=== PATIENT | female | born 1950 | race Caucasian/White ===

== ENCOUNTER → 2020-02-29 13:29 | Outpatient (BNVA) | payer MEDICARE, OTHER, SELFPAY | PROVIDERS: Family Provider Family Medicine; Visit Provider Nurse Practitioner Family | DX: Z11.59 Encounter for screening for other viral diseases (principal) | CPT/HCPCS: 87635 ==

== ENCOUNTER → 2020-03-28 17:20 | Outpatient (BNVA) | payer MEDICARE, OTHER, SELFPAY | PROVIDERS: Family Provider Family Medicine; Visit Provider Family Medicine | DX: Z00.00 Encounter for general adult medical examination without abnormal findings (principal); Z12.11 Encounter for screening for malignant neoplasm of colon; H40.89 Other specified glaucoma; G50.0 Trigeminal neuralgia; R03.0 Elevated blood-pressure reading, without diagnosis of hypertension; Z13.220 Encounter for screening for lipoid disorders; Z13.6 Encounter for screening for cardiovascular disorders | CPT/HCPCS: 80061 ==

== ENCOUNTER → 2020-03-29 09:29 | Outpatient (BNVA) | payer MEDICARE, OTHER, SELFPAY | PROVIDERS: Family Provider Family Medicine; Visit Provider Family Medicine | DX: Z00.00 Encounter for general adult medical examination without abnormal findings (principal); Z12.11 Encounter for screening for malignant neoplasm of colon; H40.89 Other specified glaucoma; G50.0 Trigeminal neuralgia; R03.0 Elevated blood-pressure reading, without diagnosis of hypertension; Z13.220 Encounter for screening for lipoid disorders; Z13.6 Encounter for screening for cardiovascular disorders | CPT/HCPCS: 80053; 84443; 85025 ==

== ENCOUNTER 2020-03-31 10:54 | Outpatient (CLI) | payer MEDICARE, OTHER, SELFPAY ==
--- NOTE | 2020-03-31 11:05 | MM_ITS ---
WS: [id number] BILATERAL DIGITAL SCREENING MAMMOGRAPHY WITH CAD CLINICAL INFORMATION: SCREENING HISTORY: Screening mammogram. No current complaints. COMPARISON: TECHNIQUE: Bilateral CC and MLO views. FINDINGS: Scattered fibroglandular densities bilaterally. No suspicious focal mass, asymmetry, calcifications, or architectural distortion. No evidence of malignancy. MM/[place] [id number] IMPRESSION: BI-RADS: 1-Negative FOLLOW UP: 1 Year Follow-up Recommend return to annual screening mammography.
== END 2020-03-31 10:55 | disposition home or self-care (01) ==
LOC: RADSHAW 11:01
PROVIDERS: PCP Family Medicine; Visit Provider Family Medicine
DX: Z12.31 Encounter for screening mammogram for malignant neoplasm of breast (principal)
CPT/HCPCS: 77067

== ENCOUNTER 2020-04-19 08:04 | Day surgery (SDC) | payer MEDICARE, OTHER, SELFPAY ==
[2020-04-13 14:18] VITALS: BMI 34.4
[2020-04-19 08:20] VITALS: BP 149/98; PULSE 86; RESP 18; TEMP 36.4; O2SAT 97
[2020-04-19] MEDS: sodium chloride 0.9% 1,000 ML 30 ML IV (08:24)
--- NOTE | 2020-04-19 08:39 | ANES.PREANE2 ---
Pre-Anesthetic Assessment Pre-Anesthetic Assessment: Height/Weight: Height 1.55 m Weight 82.554 kg Temp Pulse Resp BP Pulse Ox 97.6 F 86 18 149/98 97 04/19/20 08:20 04/19/20 08:20 04/19/20 08:20 04/19/20 08:20 04/19/20 08:20 Preop Diagnosis: Screening Proposed Procedure: Operation Date: 04/19/20 09:00 Proposed Procedures p Colonoscopy 90997 z12.11(Not Applicable) - Andrew Treviño MD Familial anesthetic complications: None Was Beta Judith taken within 24 hours: N/A Last intake: Intake Last Liquid Date 04/18/20 Last Liquid Time 22:00 Last Solid Date 04/17/20 Social: Social History: No alcohol and No tobacco Exam: Pre-Anes Outpt Exam: alert, oriented x 3, clear to auscultation bilaterally and regular rate & rhythm Airway: Cervical ROM: WNL MP: 3 Dentition: False Neuropsych: Comments: trigeminal neuralgia Anesthetic Plan: ASA status: 2 Anesthesia: MAC Risk of > 500 ml blood loss (7ml/kg in children): No Meds/Allergies Current Medications: Current Medications Generic Name Dose Route Start Last Admin Trade Name Freq PRN Reason Stop Dose Admin Sodium Chloride 1,000 mls @ 30 ml s/hr 04/19/20 08:30 04/19/20 08:24 Sodium Chloride 0.9% IV 04/20/20 08:29 30 mls/hr .Q24H CRISTOPHER Administration PFSH Anesthesia PFSH: Medical History (Updated 03/28/20 @ 14:53 by Eleni Garcia MD) Glaucoma Seizures Social History Smoking and tobacco status: never smoked Household members: spouse Marital status: Data Anesthesia Cardiac Studies: No Data to Display
--- NOTE | 2020-04-19 09:48 | W.PM.OPSFHP ---
Same Day Surgery H&P Indication for Procedure/HPI DATE OF PROCEDURE: April 19, 2020 CHIEF COMPLAINT/INDICATIONFOR SURGICAL PROCEDURE: screening colonoscopy PREOP DIAGNOSIS: Screening PLANNED PROCEDRUE: Operation Date: 04/19/20 09:00 Proposed Procedures p Colonoscopy 99662 z12.11(Not Applicable) - Andrew Treviño MD Medications/Allergies* Home Medications Medication Instructions Recorded Confirmed Type brimonidine 0.1 % eye drops 1 drp OPHTHALMIC (EYE) BID ml 03/28/20 04/13/20 History oxcarbazepine 600 mg tablet 600 mg PO BID 03/28/20 04/13/20 History timolol 0.5 % eye drops 1 drp OPHTHALMIC (EYE) BID 03/28/20 04/13/20 History latanoprost 0.005 % eye drops 1 drp OPHTHALMIC (EYE) DAILY 04/05/20 04/13/20 History Allergies/Adverse Reactions Allergy/AdvReac Type Severity Reaction Status Date / Time No Known Allergies Allergy Verified 04/05/20 12:27 Current Medications: Generic Name Dose Route Start Last Admin Trade Name Freq PRN Reason Stop Dose Admin Sodium Chloride 1,000 mls @ 30 mls/hr 04/19/20 08:30 04/19/20 08:24 Sodium Chloride 0.9% IV 04/20/20 08:29 30 mls/hr .Q24H CRISTOPHER Administration Pertinent History/Comorbid Conditions* Medical History (Updated 03/28/20 @ 14:53 by Eleni Garcia MD) Glaucoma Seizures Social History Smoking and tobacco status: never smoked Household members: spouse Marital status: Pertinent Exam Findings alert, oriented x 3 and regular rate & rhythm Recommendations Surgery/Procedure today Coding Level of Care Code Acute Software Configuration Analyst for Jael Abrams
[2020-04-19 10:13] VITALS: BP 107/65; PULSE 80; RESP 16; TEMP 36.3; O2SAT 97
[2020-04-19 10:26] VITALS: BP 122/76; PULSE 77; RESP 16; O2SAT 97
--- NOTE | 2020-04-19 10:34 | ANE.PACU2 ---
Inpatient post-anesthesia follow up: Airway intact: Yes Vital signs: Temperature 97.3 F Pulse Rate 77 Respiratory Rate 16 Blood Pressure 122/76 Pulse Oximetry 97 Oxygen Delivery Me thod Room Air Oxygen Flow Rate Fraction of Inspir ed Oxygen Hydration adequate: Yes Nausea and vomiting: No Pain level: 1 Mental status: Baseline
== END 2020-04-19 10:38 | disposition home or self-care (01) ==
PROVIDERS: PCP Family Medicine; Visit Provider Surgery
PROC: 0DJD8ZZ Inspection of Lower Intestinal Tract, Via Natural or Artificial Opening Endoscopic (ICD-10-PCS; CPT 45378; principal; 2020-04-19 09:00)
DX: Z12.11 Encounter for screening for malignant neoplasm of colon (principal); K57.30 Diverticulosis of large intestine without perforation or abscess without bleeding; K64.8 Other hemorrhoids
CPT/HCPCS: 12345; G0121; J2704; J7030

== ENCOUNTER → 2021-02-02 10:22 | Outpatient (BNVA) | payer MEDICARE, OTHER, SELFPAY | PROVIDERS: PCP Family Medicine; Visit Provider Family Medicine | DX: R35.0 Frequency of micturition (principal) | CPT/HCPCS: 81003; 87086 ==

== ENCOUNTER 2021-03-14 11:14 | Outpatient (CLI) | payer MEDICARE, OTHER, SELFPAY ==
--- NOTE | 2021-03-14 11:17 | MR_ITS ---
WS: [id number] MRI BRAIN WITH HIGH-RESOLUTION IMAGING THROUGH THE INTERNAL AUDITORY CANALS WITHOUT AND WITH CONTRAST HISTORY: MIXED CONDUCTIVE/SENSORINEURAL HEARING LOSS;TINNITUS RT EAR COMPARISON: None available. TECHNIQUE: Multiplanar, multisequence imaging is performed through the brain. Additional 3 mm imaging performed in multiple planes through the internal auditory canal. Postcontrast imaging with 20 ml's of MultiHance. No acute intracranial hemorrhage, midline shift, edema or mass effect. Numerous T2 and FLAIR signal hyperintensities throughout the white matter. No prior large territory i nfarct. Only very small amount of volume loss and atrophy. Ventricles and extra-axial spaces are normal. No inferior displacement of cerebellar tonsils. Clivus and pituitary gland are normal. Internal and external auditory canals: Unremarkable. Cranial nerves VII and VIII complexes: Unremarkable. No enhancement or mass. Cerebellopontine angles: Normal. Paranasal sinuses: Normal. Mastoid air cells: Normal. Calvarium and scalp: Normal. Visualized [place] and dural venous sinuses demonstrate no abnormality. MR/MR iac's wo/w con* [id number] IMPRESSION: 1. No mass or abnormal enhancement the cerebellopontine angles or along the in ternal auditory canals. 2. Moderate scattered T2 and FLAIR signal hyperintensities. These changes can be related to microvascular ischemic disease, migraines, history of smoking or hypertension.
[2021-03-14] MEDS: gadobenate dimeglumine 20 mL vial IV (13:00)
== END 2021-03-14 11:15 | disposition home or self-care (01) ==
LOC: RADSHAW 11:16
PROVIDERS: PCP Family Medicine; Visit Provider Specialist
DX: H90.8 Mixed conductive and sensorineural hearing loss, unspecified (principal); H93.11 Tinnitus, right ear
CPT/HCPCS: 70553; A9577

== ENCOUNTER 2021-03-21 11:14 | Outpatient (CLI) | payer MEDICARE, OTHER, SELFPAY ==
--- NOTE | 2021-03-21 11:30 | MM_ITS ---
WS: [id number] BILATERAL DIGITAL DIAGNOSTIC MAMMOGRAM MAMMOGRAPHY WITH CAD CLINICAL INFORMATION: left breast pain COMPARISON: March 31, 2020 TECHNIQUE: Bilateral CC, MLO, and ML views. FINDINGS: Scattered fibroglandular densities bilaterally. A few punctate calcifications. No significant parench ymal changes since March 31, 2020. Ultrasound left breast is pending. ULTRASOUND BREAST LEFT TECHNIQUE: Ultrasound left breast focused area of concern. CLINICAL INFORMATION: left breast pain FINDINGS: Ultrasound left breast at the 3 to 4:00 position. No cystic or solid lesions. No underlying suspiciou s abnormalities. No lesions to target for biopsy. Findings are benign. MM/[place] [id number] IMPRESSION: BI-RADS: 2-Benign FOLLOW UP: 1 Year Follow-up Recommend return to annual screening mammography.
--- NOTE | 2021-03-21 12:45 | US_ITS ---
WS: [id number] BILATERAL DIGITAL DIAGNOSTIC MAMMOGRAM MAMMOGRAPHY WITH CAD CLINICAL INFORMATION: left breast pain COMPARISON: March 31, 2020 TECHNIQUE: Bilateral CC, MLO, and ML views. FINDINGS: Scattered fibroglandular densities bilaterally. A few punctate calcifications. No significant parench ymal changes since March 31, 2020. Ultrasound left breast is pending. ULTRASOUND BREAST LEFT TECHNIQUE: Ultrasound left breast focused area of concern. CLINICAL INFORMATION: left breast pain FINDINGS: Ultrasound left breast at the 3 to 4:00 position. No cystic or solid lesions. No underlying suspiciou s abnormalities. No lesions to target for biopsy. Findings are benign. US/US breast LT limited* [id number] IMPRESSION: BI-RADS: 2-Benign FOLLOW UP: 1 Year Follow-up Recommend return to annual screening mammography.
== END 2021-03-21 11:15 | disposition home or self-care (01) ==
LOC: RADSHAW 11:16
PROVIDERS: PCP Family Medicine; Visit Provider Family Medicine
DX: N64.4 Mastodynia (principal)
CPT/HCPCS: 76642; 77066

== ENCOUNTER → 2021-11-14 10:45 | Outpatient (BNVA) | payer MEDICARE, OTHER, SELFPAY | PROVIDERS: PCP Family Medicine; Visit Provider Nurse Practitioner Family | DX: R03.0 Elevated blood-pressure reading, without diagnosis of hypertension (principal); R56.9 Unspecified convulsions; E78.2 Mixed hyperlipidemia | CPT/HCPCS: 80053; 80061; 85025 ==

== ENCOUNTER → 2022-02-07 09:44 | Outpatient (BNVA) | payer MEDICARE, OTHER, SELFPAY | PROVIDERS: PCP Family Medicine; Visit Provider Family Medicine | DX: M25.561 Pain in right knee (principal); M25.562 Pain in left knee; M79.604 Pain in right leg; M79.605 Pain in left leg | CPT/HCPCS: 73560; 73562 ==

== ENCOUNTER 2022-04-24 11:58 | Outpatient (CLI) | payer MEDICARE, OTHER, SELFPAY ==
--- NOTE | 2022-04-24 13:00 | MR_ITS ---
WS: [id number] MRI LEFT KNEE NONCONTRAST TECHNIQUE: Axial PD, coronal PD fat sat, coronal PD, sagittal PD, and sagittal PD fat-sat images obta ined. CLINICAL INFORMATION: M25.561 - Pain in right knee COMPARISON: None. FINDINGS: Advanced tricompartmental arthritis worse in the medial joint compartment. Advanced narrowing patello femoral articulation. Subchondral cystic change involving the anterior tibial plateau near the tibial spines. Mild subchondral edema involving the medial and lateral tibial plateaus and medial femoral c ondyle. Hypertrophic changes along the joint line. Distal quadriceps and patella tendons are intact. Hypertrophic patella. PCL is normal. Chronic appear ing thinning with mucoid degeneration of the ACL which appears grossly intact. Chronic thinning of the lateral meniscus appears intact. Complete loss of the body medial meniscus wi th peripheral extrusion. Normal medial and lateral collateral ligaments. Tiny popliteal cyst. MR/MR knee LT wo con* [id number] IMPRESSION: 1. Normal PCL. Chronic appearing thinning and irregularity of the ACL likely d ue to mucoid degeneration. Suspected prior partial chronic ACL tear. 2. Advanced tricompartmental arthritis with a small amount of subchondral saad a in the medial and lateral tibial plateau and medial femoral condyle. 3. Xlmr-nl-pxtp articulation medial joint compartment with peripheral extrusio n of the medial meniscus. 4. Medial and lateral collateral ligaments appear intact. 5. Advanced chondromalacia patella. Hypertrophic patella. 6. No other acute findings. Outbridge grading: grade IV: full-thickness cartilage loss with underlying bone reactive changes
--- NOTE | 2022-04-24 13:45 | MR_ITS ---
WS: [id number] MRI RIGHT KNEE NONCONTRAST TECHNIQUE: Axial PD, coronal PD fat sat, coronal PD, sagittal PD, and sagittal PD fat-sat images obta ined. CLINICAL INFORMATION: M25.561 - Pain in right knee COMPARISON: None. FINDINGS: Moderate to advanced tricompartmental arthritis worse medial joint compartment. Advanced degenerative narrowing patellofemoral articulation. Livb-yk-eufx articulation medial joint compartment with subch ondral edema in the femoral condyle and tibial plateau. Distal quadriceps and patella tendons are intact. Normal ACL and PCL appear intact. Advanced chondromalacia patella. No significant subchondral edema. Peripheral extrusion of the medial meniscus. Complete loss of the medial joint space. Mild chronic thinning of the lateral meniscus whi ch appears intact. Normal medial and lateral collateral ligaments. MR/MR knee RT wo con* [id number] IMPRESSION: 1. ACL and PCL are intact. 2. Moderate to advanced tricompartmental arthritis worse in the lateral compar tment with teqv-nn-ccaj articulation. Subchondral cystic change involving the f emoral condyle and medial tibial plateau. 3. Peripheral extrusion of the medial meniscus. 4. Advanced chondromalacia patella. 5. No other acute findings. Outbridge grading: grade IV: full-thickness cartilage loss with underlying bone reactive changes
== END 2022-04-24 11:59 | disposition home or self-care (01) ==
LOC: RAD 11:59
PROVIDERS: PCP Family Medicine; Visit Provider Family Medicine
DX: M13.861 Other specified arthritis, right knee (principal); M22.41 Chondromalacia patellae, right knee; M13.862 Other specified arthritis, left knee; M22.42 Chondromalacia patellae, left knee
CPT/HCPCS: 73721

== ENCOUNTER 2022-04-30 10:00 | Outpatient (CLI) | payer MEDICARE, SELFPAY ==
--- NOTE | 2022-04-30 10:05 | MM_ITS ---
WS: [id number] Bilateral screening 3D tomosynthesis digital mammogram, 04/30/2022 Clinical Data: SCREENING Comparison: 03/21/2021, 03/31/2020, 12/29/2018, 05/06/2017, 03/30/2016, 03/28/2015, 04/16/2014, 03/19/20 13, 03/14/2012. Findings: The breast parenchymal pattern shows fibroglandular tissue. No spiculated masses or clustered calcifi cations are seen. There are no secondary signs of carcinoma. There are mole markers on the left breas t. MM/[place] [id number] Impression: 1. Negative bilateral mammogram unchanged. 2. Recommend annual screening mammograms. BIRADS: 1-Negative FOLLOW UP: 1 Year Follow-up The CAD food and beverage checker was used.
== END 2022-04-30 10:01 | disposition home or self-care (01) ==
LOC: RAD 10:00
PROVIDERS: PCP Family Medicine; Visit Provider Family Medicine
DX: Z12.31 Encounter for screening mammogram for malignant neoplasm of breast (principal)
CPT/HCPCS: 77063; 77067

== ENCOUNTER → 2022-05-17 09:53 | Outpatient (BNVA) | payer MEDICARE, OTHER, SELFPAY | PROVIDERS: PCP Family Medicine; Referring Provider Family Medicine; Visit Provider Student in an Organized Health Care Education/Training Program | DX: M17.0 Bilateral primary osteoarthritis of knee (principal) | CPT/HCPCS: 99204 ==

== ENCOUNTER → 2022-06-28 11:02 | Outpatient (BNVA) | payer MEDICARE, OTHER, SELFPAY | PROVIDERS: PCP Family Medicine; Visit Provider Student in an Organized Health Care Education/Training Program | DX: M17.0 Bilateral primary osteoarthritis of knee (principal) | CPT/HCPCS: 99213 ==

== ENCOUNTER → 2022-08-10 14:09 | Outpatient (BNVA) | payer MEDICARE, OTHER, SELFPAY | PROVIDERS: PCP Family Medicine; Visit Provider Student in an Organized Health Care Education/Training Program | DX: M17.12 Unilateral primary osteoarthritis, left knee (principal); Z71.89 Other specified counseling | CPT/HCPCS: 20610; 99213; J7326 ==

== ENCOUNTER 2022-12-15 17:15 | Emergency (ER) | payer MEDICARE, OTHER, SELFPAY ==
--- NOTE | 2022-12-15 17:23 | XRR_ITS ---
PROCEDURE INFORMATION: Exam: XR Right Knee Exam date and time: 12/15/2022 5:29 PM Age: 72 years old Clinical indication: Injury or trauma; Fall; Blunt trauma; Knee; Right; Additional info: Fall, trauma to knee, no sunrise view TECHNIQUE: Imaging protocol: Radiologic exam of the right knee. Views: 1 or 2 views. COMPARISON: CR XR knee RT 1-2V [id number] 02/07/2022 9:59 AM FINDINGS: Bones/joints: Osteopenia. There is an inferior patellar fracture which is acute and probably somewhat comminuted, predominantly in the transverse orientation with approximately inferior displacement/distraction of about 16 mm with retraction of the patella tendon. There is probable joint space narrowing and tricompartmental osteophytes consistent with osteoarthritis similar to prior exam. No other obvious acute fracture or dislocation. Small joint effusion. Soft tissues: Anterior soft tissue swelling. Prepatellar collection/soft tissue hematoma may also be present. Other findings: Two views submitted. XR/XR knee RT 1-2V [id number] IMPRESSION: Patellar fracture. Other nonacute findings as above.
[2022-12-15 17:25] VITALS: BP 171/82; PULSE 86; RESP 18; TEMP 37; O2SAT 96; BMI 34.0
[2022-12-15 17:28] VITALS: BP 171/82; PULSE 85; RESP 18; TEMP 36.6; O2SAT 96
--- NOTE | 2022-12-15 17:34 | W.ED.EXTPRO ---
HPI - Extremity Problem General: Chief complaint: Extremity Injury, Lower Stated complaint: fall / r knee pain Time Seen by Provider: 12/15/22 17:17 History of Present Illness: Mary is a 72-year-old female that presents to the emergency department via ambulance. She states she was walking in a restaurant when she tripped on a rubber mat and fell to her right knee. She reports immediate pain in the knee and inability to stand. Patient denies injuring her upper extremities or striking her head. Patient reports only medical history as trigeminal neuralgia and cataracts. Associated symptoms: Deny chest pain, fever(s) or rash Review of Systems General: Reports: 10 or more systems reviewed and unremarkable except in HPI and below Const: Denies: fever(s), chills, change in appetite, change in weight, fatigue or malaise Eyes: Denies: change in vision, eye discomfort, eye discharge or eye redness ENMT: Denies: throat pain, enlarged tonsils, odynophagia, hoarseness, ear or mastoid pain, ear discharge, change in hearing, tinnitus, nasal discharge, nasal congestion, post nasal drip or sinus pain Card: Denies: chest pain, palpitations, irregular heart rhythm, edema, dyspnea on exertion, orthopnea or leg pain with exertion Resp: Denies: dyspnea, productive cough, non-productive cough, wheezing, stridor or chest congestion GI: Denies: abdominal pain, nausea, vomiting, dysphagia, diarrhea, constipation, bloating, GI cramping or hematochezia : Denies: flank pain, difficulty voiding, dysuria, urinary frequency, urinary urgency, urinary hesitancy, oliguria or hematuria Musc: Reports: joint pain and joint swelling; Denies: neck pain, back pain, extremity pain, joint redness, joint warmth, joint stiffness or muscle weakness Skin/Breast: Denies: rash, pruritus, erythema, photosensitivity or new lesions Neuro: Denies: headache(s), numbness in extremities, weakness in extremities, sensory changes, lack of coordination, difficulty walking, frequent falls, dizziness, confusion, Slurred speech present, difficulty communicating thoughts, seizure-like activity or involuntary movements Endo: Denies: polyuria, polydipsia or tired all the time Catracho/Lymph: Denies: easy bruising or easy bleeding PFSH ED PFSH: Medical History Glaucoma Knee pain Left knee DJD Right knee DJD Surgical History Status post colonoscopy (04/19/20) repeat in 10 years Social History Smoking and tobacco status: never smoked Second hand smoke exposure: No Alcohol intake: never Substance/Drug Use: never Caregiver/support person: Yes Lives independently: Yes (spouse) Household members: spouse Marital status: Current occupational status: retired Current gender identity: Female Physical Exam Const: COMMON NORMALS: no acute distress, patient oriented x3 and alert GENERAL APPEARANCE: cooperative ORIENTATION/CONSCIOUSNESS: Yes awake, Yes oriented to person, Yes oriented to place and Yes oriented to time HENMT: COMMON NORMALS: normocephalic and atraumatic HEAD & SCALP: normocephalic and atraumatic FACE & SINUS: normal facial exam MOUTH: Normal oral and palatal mucosa present THROAT: posterior oropharynx normal Eye: COMMON NORMALS: Equal, round and reactive pupils present, EOMs intact bilaterally, conjunctivae normal and no scleral icterus GENERAL EYE: appearance normal, both eyes and all related structures ALIGNMENT: Yes alignment normal PERIORBITAL: periorbital findings normal CONJUNCTIVA: Yes conjunctivae normal PUPIL: Yes Equal, round and reactive pupils present Neck/C-Spine: COMMON NORMALS: full ROM GENERAL: Yes normal visual inspection Lymph: LYMPHATIC: no lymphadenopathy noted Chest: COMMONS NORMALS: normal inspection of the chest Breast/axilla inspection: Yes no chest deformity, asymmetry, normal contours, no nodules, masses, tenderness Resp: COMMON NORMALS: normal respiratory effort, No retractions, No use of accessory muscles and clear to auscultation bilaterally EFFORT & INSPECTION: Yes able to speak in complete sentences and Yes symmetric chest movement AUSCULTATION: clear to auscultation bilaterally Cardio: COMMON NORMALS: regular rate, regular rhythm and Peripheral pulses 2+ throughout RATE: regular rate RHYTHM: regular rhythm PERIPHERAL PULSES: Peripheral pulses 2+ throughout GI: COMMON NORMALS: Normal to inspection, nondistended, normoactive bowel sounds present, Soft to palpation, non-tender and No hepatosplenomegaly present INSPECTION: Yes normal to inspection AUSCULTATION: Yes normoactive bowel sounds PALPATION: Yes Soft to palpation and Yes No hepatosplenomegaly present RECTAL EXAM: deferred Extremity: OTHER: Right lower extremity: Skin is clean dry and intact; swelling to anterior and lateral aspect of the knee Tender to palpation over groin and lateral hip Patient is unable to flex and extend the knee Unable to perform straight leg raise Does have dorsiflexion plantarflexion in the right foot Able to dorsiflex great toe Sensation intact to light touch at medial, lateral, dorsal, plantar surface of the foot and first webspace DP pulses palpable and cap refills less than 3 seconds Neuro: COMMON NORMALS: patient oriented x3 SENSORIUM/ORIENTATION: Yes alert, Yes oriented to person, Yes oriented to place and Yes oriented to time CRANIAL NERVES: Yes CN normal except as noted Psych: COMMON NORMALS: mental status grossly normal, Normal thought process present, cooperative, activity/motor behavior normal, denies homicidal ideation and denies suicidal ideation THOUGHT PROCESS: Normal thought process present Skin: COMMON NORMALS: no rashes or lesions noted, no wounds and turgor normal GENERAL SKIN EXAM: no rashes or lesions noted and turgor normal Course Vital Signs: Vital signs: Vital Signs Temperature 98.6 F 12/15/22 17:25 Pulse Rate 86 12/15/22 17:25 Respiratory Rate 18 12/15/22 17:25 Blood Pressure 171/82 12/15/22 17:25 Pulse Oximetry 96 12/15/22 17:25 Oxygen Delivery Me thod Room Air 12/15/22 17:25 MDM - Extremity (Nontraumatic) Medical Decision Making Patient was evaluated in the emergency department due to knee trauma. She underwent XR imaging of the right knee which reveals a comminuted patella fracture Patient was placed in a knee mobilizer, the extremity was iced, and she was given p.o. hydrocodone for pain. Patient was offered crutches or walker. He does have a history of joint disease and a walker would likely be more safe. She is agreeable to a walker. Patient has seen Dr. Terry before but Dr. Cheng is on-call. I did speak with Dr. Cheng who advises walker ice and follow-up. Patient needs to call to arrange follow-up on Saturday. Discharge Plan Discharge Patient Disposition: Home Clinical Impression: Fracture, patella Condition: Stable Prescriptions: New hydrocodone-acetaminophen 5-325 mg tablet 1 tab PO QID PRN (Reason: pain) Qty: 16 0RF No Action ketoconazole 2 % shampoo 1 applic topical .2x weekly Qty: 120 6RF meloxicam 15 mg tablet 15 mg PO DAILY 30 Days Qty: 30 0RF krill oil 500 mg capsule 500 mg PO DAILY Qty: 90 4RF meloxicam 15 mg tablet 15 mg PO DAILY 30 Days Qty: 30 0RF oxcarbazepine 600 mg tablet See Rx Instructions .ROUTE .COMPLEX Qty: 180 0RF Dose Instruction: TAKE 1 TABLET TWICE DAILY Rx Instructions: TAKE 1 TABLET TWICE DAILY Discharge Orders: Discharge ED (Routine); Ordered 12/15/22 Ordered By: Aiyana Leonardo Referrals: Mamie Cheng MD [Physician] - Rhett Terry DO [Physician] - Eleni Garcia MD [Primary Care Provider] - Discharge Diet: Advance as tolerated Discharge Activity: Increase activity as tolerated and Use walker/crutches as instructed Patient Instructions: Patellar Fracture (ED), Opioid Safety, Pain Management Activity Restrictions/Additional Instructions: Knee immobilizer at all times. I would use ice throughout the day to help with swelling Can also take your meloxicam, previously prescribed, to help with inflammation Going to provide you with a hydrocodone prescription. Take as directed. Follow-up with orthopedic surgery, call Saturday for an appointment. Coding Level of Care Code ED Designer And Patternmaker for Jael Abrams
[2022-12-15] MEDS: HYDROcodone-acetaminophen 5-325 mg Tablet 1 TAB PO (17:55)
[2022-12-15 20:00] VITALS: BP 131/76; PULSE 82; RESP 16; O2SAT 95
== END 2022-12-15 19:29 | disposition home or self-care (01) ==
PROVIDERS: Emergency Provider Nurse Practitioner; PCP Family Medicine
DX: S82.041A Displaced comminuted fracture of right patella, initial encounter for closed fracture (principal); W18.09XA Striking against other object with subsequent fall, initial encounter; Y92.511 Restaurant or cafe as the place of occurrence of the external cause
CPT/HCPCS: 29530; 73560; 99283

== ENCOUNTER → 2022-12-18 07:50 | Outpatient (BNVA) | payer MEDICARE, OTHER, SELFPAY | PROVIDERS: PCP Family Medicine; Referring Provider Nurse Practitioner; Visit Provider Specialist | DX: S82.041A Displaced comminuted fracture of right patella, initial encounter for closed fracture; W18.30XA Fall on same level, unspecified, initial encounter; Y92.481 Parking lot as the place of occurrence of the external cause | CPT/HCPCS: 36415; 73562; 80053; 81001; 85025; 99204 ==

== ENCOUNTER 2022-12-19 12:13 | Outpatient (CLI) | payer MEDICARE, OTHER, SELFPAY ==
--- NOTE | 2022-12-19 11:00 | CT_ITS ---
WS: [id number] CT RIGHT KNEE, NONCONTRAST HISTORY: patella fracture Technique: All CT scans at [facility] use at least one of these dose optimization techniques: automated exposure control; mA and/or kV adjustment per patient size (includes targeted exams where dose is matched to clinical indication); or iterative reconstruction. DLP: 302.62 mGy.cm COMPARISON: Radiograph 12/18/2022 Acute comminuted fracture involving the patella. Mid to distal patellar fragment is displaced inferio rly by 12 mm. Mild narrowing of patellofemoral joint. No additional fracture is identified. There is a small suprapatellar joint effusion with adjacent sof t tissue edema. CT/CT knee RT wo con* [id number] IMPRESSION: 1. Acute comminuted patellar fracture. 2. Mid to distal patellar fragment is displaced inferiorly by 12 mm. 3. Small suprapatellar effusion.
== END 2022-12-19 12:14 | disposition home or self-care (01) ==
PROVIDERS: PCP Family Medicine; Visit Provider Specialist
DX: S82.041A Displaced comminuted fracture of right patella, initial encounter for closed fracture (principal); X58.XXXA Exposure to other specified factors, initial encounter; M25.461 Effusion, right knee
CPT/HCPCS: 73700

== ENCOUNTER → 2022-12-24 08:22 | Outpatient (BNVA) | payer MEDICARE, OTHER, SELFPAY | PROVIDERS: PCP Family Medicine; Visit Provider Specialist | DX: R82.71 Bacteriuria (principal) | CPT/HCPCS: 81003 ==

== ENCOUNTER 2022-12-25 14:19 | Day surgery (SDC) | payer MEDICARE, OTHER, SELFPAY ==
[2022-12-24 11:56] VITALS: BMI 34.0
[2022-12-25] VITALS (11 sets, daily range): BP systolic 122–169; BP diastolic 63–90; PULSE 76–87; RESP 16–17; TEMP 36.1–36.6; O2SAT 91–100
[2022-12-25] MEDS: acetaminophen 1,000 MG/100 ML PIGGYBACK 400 MG IV (15:14)
[2022-12-25] MEDS: sodium chloride 0.9% 1,000 ML 30 ML IV (15:15)
[2022-12-25] MEDS: gabapentin 300 mg Capsule PO (15:15)
[2022-12-25] MEDS: CELEcoxib 200 mg Capsule 400 MG PO (15:15)
[2022-12-25] MEDS: midazolam 1 mg/mL INJ 2 mL 2 MG IVP (16:57)
[2022-12-25] MEDS: ceFAZolin 2,000 MG in sodium chloride 0.9% (plus) 50 ML 100 MG IV (17:02)
--- NOTE | 2022-12-25 17:05 | W.PM.OPSUD ---
Surgery/Procedure H&P Update DATE OF PROCEDURE: December 25, 2022 DATE H&P PERFORMED: 12/19/22 H&P UPDATE INFORMATION: I have reviewed H&P completed within last 30 days, I have examined patient prior to procedure, No changes to prior documentation and H&P is in [facility] [place] on date indicated PLANNED PROCEDURE: Operation Date: 12/25/22 16:00 Proposed Procedures p OPEN REDUCTION INTERNAL FIXATION RIGHT PATELLA 02977,S82.041A(Right) - Mamie Cheng MD Related Problem List Diagnoses (1) Fracture, patella: Qualifiers: Encounter type: initial encounter Fracture alignment: displaced Fracture morphology: comminuted Fracture type: closed Laterality: right Qualified Code(s): S82.041A - Displaced comminuted fracture of right patella, initial encounter for closed fracture
--- NOTE | 2022-12-25 18:43 | P.OP_ITS ---
Operative Report Date of procedure: December 25, 2022 Pre-op diagnosis: Comminuted displaced right patella fracture Post-op diagnosis: Comminuted displaced right patella fracture Post-op findings: Very comminuted displaced patella fracture with retinacular disruption Procedure done: Open reduction internal fixation right comminuted patella fracture Implants: Biosteon IntraLine 5.5mm suture anchor with 2 #2 Force Fiber's Specimens removed/disposition: None Surgeon: Mamie Cheng Regional Coordinator: [facility] operating room technicians Anesthesia: General (General intubated, ASA 3) Estimated blood loss (mL): 10 Tourniquet time (min): 60 (At 250 mmHg) IV fluids (mL): 600 Urine output (mL): 0 (No Velasquez) Complications: None Findings: Severe comminution right patella fracture with significant displacement Condition: stable Disposition: PACU (Then return to same-day surgery for discharge to home) Brief History: This 72-year-old female patient presents today for open reduction internal fixation of her comminuted, displaced right patella fracture. DOI: 12/15/2022. Patient states that she fell in the parking lot at a restaurant after her foot got caught in a mat. Patient states that an ambulance was called, and she was taken to the [facility] Patient states that she had an xray and was placed in the knee immobilizer and was informed to be toe touch weight bearing. She presented to my office for evaluation. Discussion was undertaken regarding appropriate treatment of this fracture. Risks and complications were discussed with the patient and her . We elected to proceed with open reduction internal fixation. Consents were signed and questions were answered. Procedure: Patient was seen in the preoperative holding area and leg was marked. Patient was brought to the operating theater and placed on the operating room table. After undergoing adequate general intubated anesthesia, ASA 3, the patient's right lower extremity was prepped and draped in usual fashion utilizing DuraPre p. The leg was draped free. Fluoroscopy was used throughout the surgical procedure. We did have a tourniquet high on the right lower extremity. This was elevated to 250 mmHg and total tourniquet time was 60 minutes. Tourniquet elevation followed exsanguination of the leg. A surgical pause was performed. At the time of the surgical pause we identified the site and side of surgery as well as the patient's identity and availability of equipment. We also confirmed appropriate administration of IV antibiotics. Following the above, an incision was made centering over the patient's patella. The incision was continued proximally and distally as necessary to allow access to the patella. There was noted to be a comminuted patellar fracture with significant displacement. There was also disruption of the retinaculum medially and laterally. The patella was evaluated, and there were 3 large pieces proximally, one larger piece distally, and several comminuted pieces. The comminuted pieces were removed. The proximal aspect of the patella was addressed. We were able to place 2 Biosteon anchors into the most proximal pole of the patella. 1 of these anchors was utilized to hold the large comminuted piece in position to give as much patella as possible for possible subsequent surgical interventions in the form of knee replacement. Each anchor had 2 #2 Force Fiber sutures, and these were used to weave through the patellar tendon in a modified Sanchez fashion. The larger comminuted piece was returned to its near anatomic position, and this was tied into place with the suture anchor as well. The retinaculum was also closed with the Force Fiber. Fluoroscopy was used to evaluate the patellar reduction. Finding it to be satisfactory, attention was directed to closure. The wound was copiously irrigated. Following irrigation, the incision was closed with 2-0 Monocryl in the subcutaneous tissues followed by skin ruel. This closure was followed by Dermabond Prineo, OpSite, sterile soft roll, and an Christofer wrap. The patient's knee immobilizer was then placed once again on her knee. She will be allowed to be weightbearing as tolerated in the knee immobilizer. She is to wear it at all times except when she removes it for showers. The procedure was well tolerated without complication. Tourniquet time was 60 minutes at 250 mmHg. The patient will be discharged home to follow-up in my office as scheduled. Related Problem List Diagnoses (1) Fracture, patella:
[2022-12-25] MEDS: HYDROmorphone 1 mg/mL INJ 1 mL 0.5 MG IVP (19:02)
--- NOTE | 2022-12-25 19:03 | XR_ITS ---
WS: [id number] XR knee RT 1-2V [id number] REASON FOR EXAM: OR PICS FINDINGS: Comminuted fracture of the mid and lower portion of the patella. Fracture fragments appear more closely opposed than on the preoperative examination. IMPRESSION: Intraoperative manipulation of comminuted fracture of the patella.
[2022-12-25] MEDS: oxyCODONE 5 mg IR Tab/Cap PO (19:29)
--- NOTE | 2022-12-25 20:00 | ANE.PACU2 ---
Inpatient post-anesthesia follow up: Airway intact: Yes Vital signs: Temperature 97.1 F Pulse Rate 82 Respiratory Rate 17 Blood Pressure 148/86 Pulse Oximetry 96 Oxygen Delivery Me thod Room Air Oxygen Flow Rate 3 Fraction of Inspir ed Oxygen Hydration adequate: Yes Nausea and vomiting: No Pain level: 1 Mental status: Baseline
== END 2022-12-25 20:16 | disposition home or self-care (01) ==
PROVIDERS: PCP Family Medicine; Visit Provider Specialist
PROC: (CPT 27524; principal; 2022-12-25 15:50)
DX: S82.041A Displaced comminuted fracture of right patella, initial encounter for closed fracture (principal); W01.0XXA Fall on same level from slipping, tripping and stumbling without subsequent striking against object, initial encounter; Y92.481 Parking lot as the place of occurrence of the external cause
CPT/HCPCS: 27524; 73560; 76000; C1713; J0131; J0690; J1100; J1170; J1885; J2250; J2405; J2704; J3010; J7030

== ENCOUNTER → 2023-01-09 08:50 | Outpatient (BNVA) | payer MEDICARE, OTHER, SELFPAY | PROVIDERS: PCP Family Medicine; Visit Provider Nurse Practitioner Family | DX: S82.041A Displaced comminuted fracture of right patella, initial encounter for closed fracture; X58.XXXA Exposure to other specified factors, initial encounter; Z98.890 Other specified postprocedural states; Z46.89 Encounter for fitting and adjustment of other specified devices; S82.001D Unspecified fracture of right patella, subsequent encounter for closed fracture with routine healing; X58.XXXD Exposure to other specified factors, subsequent encounter | CPT/HCPCS: 73562; 97760; 99024; L1832 ==

== ENCOUNTER 2023-01-09 14:05 | Outpatient (CLI) | payer MEDICARE, OTHER, SELFPAY | END 2023-01-09 14:06 | disposition home or self-care (01) | LOC: SPT 14:06 | PROVIDERS: PCP Family Medicine; Visit Provider Nurse Practitioner Family | DX: Z46.89 Encounter for fitting and adjustment of other specified devices (principal); S82.001D Unspecified fracture of right patella, subsequent encounter for closed fracture with routine healing; X58.XXXD Exposure to other specified factors, subsequent encounter | CPT/HCPCS: 97760; L1832 ==

== ENCOUNTER → 2023-01-31 08:37 | Outpatient (BNVA) | payer MEDICARE, OTHER, SELFPAY | PROVIDERS: PCP Family Medicine; Visit Provider Nurse Practitioner Family | DX: Z98.890 Other specified postprocedural states (principal); S82.041A Displaced comminuted fracture of right patella, initial encounter for closed fracture; X58.XXXA Exposure to other specified factors, initial encounter | CPT/HCPCS: 73562; 99213 ==

== ENCOUNTER → 2023-02-15 08:23 | Outpatient (BNVA) | payer MEDICARE, OTHER, SELFPAY | PROVIDERS: PCP Family Medicine; Visit Provider Physician Assistant | DX: Z98.890 Other specified postprocedural states; S82.041D Displaced comminuted fracture of right patella, subsequent encounter for closed fracture with routine healing; X58.XXXD Exposure to other specified factors, subsequent encounter | CPT/HCPCS: 73562; 99024; 99213 ==

== ENCOUNTER → 2023-03-11 15:23 | Outpatient (BNVA) | payer MEDICARE, OTHER, SELFPAY | PROVIDERS: PCP Family Medicine; Visit Provider Specialist | DX: S82.041D Displaced comminuted fracture of right patella, subsequent encounter for closed fracture with routine healing; Z98.890 Other specified postprocedural states; X58.XXXD Exposure to other specified factors, subsequent encounter | CPT/HCPCS: 73562; 99024 ==

== ENCOUNTER → 2023-04-01 09:31 | Outpatient (BNVA) | payer MEDICARE, OTHER, SELFPAY | PROVIDERS: PCP Family Medicine; Visit Provider Specialist | DX: Z98.890 Other specified postprocedural states (principal); S82.041D Displaced comminuted fracture of right patella, subsequent encounter for closed fracture with routine healing; X58.XXXD Exposure to other specified factors, subsequent encounter | CPT/HCPCS: 73562; 97760; 99213; L1812 ==

== ENCOUNTER 2023-04-01 10:49 | Outpatient (CLI) | payer MEDICARE, OTHER, SELFPAY | END 2023-04-01 10:50 | disposition home or self-care (01) | LOC: SPT 10:51 | PROVIDERS: PCP Family Medicine; Visit Provider Specialist | DX: Z46.89 Encounter for fitting and adjustment of other specified devices (principal); S82.009D Unspecified fracture of unspecified patella, subsequent encounter for closed fracture with routine healing; X58.XXXD Exposure to other specified factors, subsequent encounter; Z98.890 Other specified postprocedural states; S82.041D Displaced comminuted fracture of right patella, subsequent encounter for closed fracture with routine healing | CPT/HCPCS: 97760; 99213; L1812 ==

== ENCOUNTER → 2023-05-01 08:56 | Outpatient (BNVA) | payer MEDICARE, OTHER, SELFPAY | PROVIDERS: PCP Family Medicine; Visit Provider Specialist | DX: S82.041D Displaced comminuted fracture of right patella, subsequent encounter for closed fracture with routine healing; X58.XXXD Exposure to other specified factors, subsequent encounter | CPT/HCPCS: 73562; 99213 ==

== ENCOUNTER → 2023-05-27 12:56 | Outpatient (BNVA) | payer MEDICARE, OTHER, SELFPAY | PROVIDERS: PCP Family Medicine; Visit Provider Dermatology | DX: M71.341 Other bursal cyst, right hand (principal); L21.8 Other seborrheic dermatitis; L82.1 Other seborrheic keratosis; D22.21 Melanocytic nevi of right ear and external auricular canal; L82.0 Inflamed seborrheic keratosis | CPT/HCPCS: 10060; 17110; 99214 ==

== ENCOUNTER → 2023-06-05 10:51 | Outpatient (BNVA) | payer MEDICARE, OTHER, SELFPAY | PROVIDERS: PCP Family Medicine; Visit Provider Specialist | DX: M17.11 Unilateral primary osteoarthritis, right knee (principal); Z98.890 Other specified postprocedural states | CPT/HCPCS: 73562; 99213 ==

== ENCOUNTER 2023-06-12 06:00 | Outpatient (RCR) | payer MEDICARE, OTHER, SELFPAY | END 2023-06-19 23:59 | disposition home or self-care (01) | LOC: APT 06:00 | PROVIDERS: Visit Provider Specialist | DX: Z98.890 Other specified postprocedural states (principal) | CPT/HCPCS: 97110; 97161; 97530 ==

== ENCOUNTER 2023-06-20 06:00 | Outpatient (RCR) | payer MEDICARE, OTHER, SELFPAY | END 2023-07-18 23:59 | disposition home or self-care (01) | LOC: APT 06:00 | PROVIDERS: Visit Provider Specialist | DX: S82.001 Unspecified fracture of right patella (principal); X58.XXXD Exposure to other specified factors, subsequent encounter | CPT/HCPCS: 97110; 97112; 97530 ==

== ENCOUNTER → 2023-07-17 10:38 | Outpatient (BNVA) | payer MEDICARE, OTHER, SELFPAY | PROVIDERS: PCP Family Medicine; Visit Provider Specialist | DX: S82.041D Displaced comminuted fracture of right patella, subsequent encounter for closed fracture with routine healing (principal); X58.XXXD Exposure to other specified factors, subsequent encounter | CPT/HCPCS: 73562; 99213 ==

== ENCOUNTER 2023-07-19 06:00 | Outpatient (RCR) | payer MEDICARE, OTHER, SELFPAY | END 2023-08-18 23:59 | disposition home or self-care (01) | LOC: APT 06:00 | PROVIDERS: PCP Family Medicine; Visit Provider Specialist | DX: S82.001 Unspecified fracture of right patella (principal); X58.XXXD Exposure to other specified factors, subsequent encounter | CPT/HCPCS: 97110; 97140; 97530 ==

== ENCOUNTER 2023-08-19 06:00 | Outpatient (RCR) | payer MEDICARE, OTHER, SELFPAY | END 2023-09-17 23:59 | disposition home or self-care (01) | LOC: APT 06:00 | PROVIDERS: PCP Family Medicine; Visit Provider Specialist | DX: Z98.890 Other specified postprocedural states (principal) | CPT/HCPCS: 97110; 97140; 97530 ==

== ENCOUNTER → 2023-08-19 16:08 | Outpatient (BNVA) | payer MEDICARE, OTHER, SELFPAY | PROVIDERS: PCP Family Medicine; Visit Provider Family Medicine | DX: Z13.6 Encounter for screening for cardiovascular disorders (principal); G50.9 Disorder of trigeminal nerve, unspecified; R03.0 Elevated blood-pressure reading, without diagnosis of hypertension | CPT/HCPCS: 80053; 80061; 84443; 85025 ==

== ENCOUNTER → 2023-08-27 11:14 | Outpatient (BNVA) | payer MEDICARE, OTHER, SELFPAY | PROVIDERS: PCP Family Medicine; Visit Provider Family Medicine | DX: R73.9 Hyperglycemia, unspecified (principal) | CPT/HCPCS: 83036 ==

== ENCOUNTER 2023-09-18 06:00 | Outpatient (RCR) | payer MEDICARE, OTHER, SELFPAY | END 2023-10-18 23:59 | disposition home or self-care (01) | LOC: APT 06:00 | PROVIDERS: PCP Family Medicine; Visit Provider Specialist | DX: S82.001 Unspecified fracture of right patella (principal); X58.XXXD Exposure to other specified factors, subsequent encounter | CPT/HCPCS: 97110; 97112; 97140; 97530 ==

== ENCOUNTER 2023-10-16 13:45 | Outpatient (CLI) | payer MEDICARE, OTHER, SELFPAY ==
--- NOTE | 2023-10-16 13:48 | MM_ITS ---
WS: [id number] VIEWS: MLO and CC views both breasts. 3D digital tomosynthesis is also included in this exam. Comparison made with prior exam of 03/14/2012, 03/19/2013, 04/16/2014, 03/28/2015, 03/30/2016, 017, 12/29/2018, 03/31/2020, 03/21/2021, 04/30/2022,. Findings: There was no sign of mass, architectural distortion or suspicious calcification in either breast. The re are are scattered areas of fibroglandular density MM/[place] [id number] Impression: BI-RADS: 1-Negative FOLLOW-UP: 1 Year Follow-up This mammogram was also analyzed by the Computer Aided Detection System R2 Imag e Conventional Underwriter.
== END 2023-10-16 13:46 | disposition home or self-care (01) ==
LOC: RAD 13:45
PROVIDERS: PCP Family Medicine; Visit Provider Family Medicine
DX: M17.11 Unilateral primary osteoarthritis, right knee (principal); S82.041D Displaced comminuted fracture of right patella, subsequent encounter for closed fracture with routine healing; X58.XXXD Exposure to other specified factors, subsequent encounter
CPT/HCPCS: 73560; 73565; 77063; 77067; 99213

== ENCOUNTER → 2023-12-11 14:51 | Outpatient (BNVA) | payer MEDICARE, OTHER, SELFPAY | PROVIDERS: PCP Family Medicine; Visit Provider Nurse Practitioner Family | DX: R50.9 Fever, unspecified (principal) | CPT/HCPCS: 87426 ==

== ENCOUNTER → 2024-03-19 09:55 | Outpatient (BNVA) | payer MEDICARE, OTHER, SELFPAY | PROVIDERS: PCP Family Medicine; Visit Provider Family Medicine | DX: E11.9 Type 2 diabetes mellitus without complications (principal) | CPT/HCPCS: 82607; 83036 ==

== ENCOUNTER → 2024-06-01 09:45 | Outpatient (BNVA) | payer MEDICARE, OTHER, SELFPAY | PROVIDERS: PCP Family Medicine; Visit Provider Nurse Practitioner Family | DX: L21.8 Other seborrheic dermatitis (principal); L82.1 Other seborrheic keratosis; D22.21 Melanocytic nevi of right ear and external auricular canal; D48.5 Neoplasm of uncertain behavior of skin; L57.0 Actinic keratosis | CPT/HCPCS: 11102; 17000; 99213 ==

== ENCOUNTER → 2024-06-18 11:04 | Outpatient (BNVA) | payer MEDICARE, OTHER, SELFPAY | PROVIDERS: PCP Family Medicine; Visit Provider Family Medicine | DX: E11.9 Type 2 diabetes mellitus without complications (principal) | CPT/HCPCS: 83036 ==

== ENCOUNTER → 2024-09-24 15:22 | Outpatient (BNVA) | payer MEDICARE, OTHER, SELFPAY | PROVIDERS: PCP Family Medicine; Visit Provider Family Medicine | DX: E11.9 Type 2 diabetes mellitus without complications (principal) | CPT/HCPCS: 80053; 80061; 82607; 83036; 83721 ==

== ENCOUNTER 2024-12-31 11:15 | Outpatient (CLI) | payer MEDICARE, OTHER, SELFPAY ==
--- NOTE | 2024-12-31 11:20 | MM_ITS ---
WS: [id number] BILATERAL SCREENING DIGITAL TOMOSYNTHESIS MAMMOGRAM WITH CAD HISTORY: SCREENING COMPARISON: 10/16/2023, 04/30/2022 Bilateral CC and MLO views with tomosynthesis and synthetic mammography submitted. Computer aided detection analyzed. Breast composition: There are scattered areas of fibroglandular density. No suspicious masses, microcalcifications or architectural distortion. Benign calcifications in each breast. MM/MM scr BI tomosynthesis [id number] IMPRESSION: BI-RADS: 2 - Benign. FOLLOW UP: 1 Year Follow-up
== END 2024-12-31 11:16 | disposition home or self-care (01) ==
LOC: MOBLMAM 11:17
PROVIDERS: PCP Family Medicine; Visit Provider Family Medicine
DX: Z12.31 Encounter for screening mammogram for malignant neoplasm of breast (principal); R92.323 Mammographic fibroglandular density, bilateral breasts; R92.1 Mammographic calcification found on diagnostic imaging of breast
CPT/HCPCS: 77063; 77067

== ENCOUNTER → 2025-04-08 11:19 | Outpatient (BNVA) | payer MEDICARE, OTHER, SELFPAY | PROVIDERS: PCP Family Medicine; Visit Provider Family Medicine | DX: E11.9 Type 2 diabetes mellitus without complications (principal) | CPT/HCPCS: 80053; 80061; 82607; 83036 ==